=== PATIENT | male | born 1950 | race Caucasian/White ===

== ENCOUNTER 2018-01-17 12:11 | Emergency (ER) | payer MEDICARE, OTHER ==
[2018-01-17] MEDS ORDERED: Aspirin 81 MG Tab.Chew PO ONE (12:31)
[2018-01-17] MEDS ORDERED: Nitroglycerin 0.4 MG Tab.SL SL ONE ×2 (12:32→12:55)
[2018-01-17] MEDS ORDERED: Sodium Chloride 0.9% 10 ML Syringe FLUSH PRN (12:32)
--- NOTE | 2018-01-17 12:40 | EDM.PDOC ---
ED HPI GENERAL MEDICAL PROBLEM - General Chief Complaint: Chest Pain Stated Complaint: CHEST PAIN Time Seen by Provider: 01/17/18 12:20 Source of Information: Reports: Patient, Family History Limitations: Reports: No Limitations - History of Present Illness INITIAL COMMENTS - FREE TEXT/NARRATIVE: Jonatan comes to [facility] ED with a 4 hr hx of precordial chest pain characterized as a deep pain, nonradiating, with some sweats. There is no palpitations, dizziness, nausea, or GI upset. He has a remote hx of AMI, takes ASA 325 qHS, but does not use TNG. Initial pain rated 5/10, currently 2/10. 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 Mid-Anterior Chest Pain Score (Numeric/FACES): 2 - Related Data Allergies Allergy/AdvReac Type Severity Reaction Status Date / Time nicotine Allergy Rash Verified 06/03/16 10:53 Home Meds: Home Meds Acetaminophen/HYDROcodone [[place] 325-5 MG] 2 tab PO BID 06/03/16 [History] Aspirin 325 mg PO DAILY 06/03/16 [History] Calcium Carbonate [Calcium] 500 mg PO DAILY 06/03/16 [History] Cholecalciferol (Vitamin D3) [Vitamin D3] 5,000 unit PO DAILY 06/03/16 [History] Finasteride 5 mg PO DAILY 06/03/16 [History] Furosemide 20 mg PO BID 06/03/16 [History] Isosorbide Mononitrate [Imdur] 30 mg PO DAILY #30 tab.er 06/03/16 [Rx] Leflunomide 20 mg PO DAILY 06/03/16 [History] Lisinopril 2.5 mg PO BID 06/03/16 [History] Nitroglycerin [Nitrostat] 0.4 mg SL ASDIRECTED #1 bottle 06/03/16 [Rx] [place]-3 Fatty Acids [Fish Oil] 300 mg PO BID 06/03/16 [History] Tamsulosin [Tamsulosin 24 Hr] 0.4 mg PO BEDTIME 06/03/16 [History] Vitamin E 1,000 unit PO DAILY 06/03/16 [History] predniSONE [Prednisone] 5 mg PO DAILY 06/03/16 [History] Past Medical History Cardiovascular History: Reports: CAD, Hypertension, [place], Other (See Below) Other Cardiovascular History: TNK Genitourinary History: Reports: Prostate Disorder Musculoskeletal History: Reports: Arthritis - Past Surgical History Cardiovascular Surgical History: Reports: Other (See Below) Musculoskeletal Surgical History: Reports: Hip Replacement, Knee Replacement, Other (See Below) Social & Family History - Caffeine Use Caffeine Use: Reports: Coffee ED ROS GENERAL - Review of Systems Review Of Systems: See Below Constitutional: Reports: Malaise HEENT: Reports: No Symptoms Respiratory: Reports: No Symptoms Cardiovascular: Reports: Chest Pain Endocrine: Reports: No Symptoms GI/Abdominal: Reports: No Symptoms : Reports: No Symptoms Musculoskeletal: Reports: No Symptoms Skin: Reports: No Symptoms Neurological: Reports: No Symptoms Psychiatric: Reports: No Symptoms Hematologic/Lymphatic: Reports: No Symptoms Immunologic: Reports: No Symptoms ED EXAM, GENERAL - Physical Exam Exam: See Below Exam Limited By: No Limitations General Appearance: Alert, WD/WN, No Apparent Distress, Anxious Eye Exam: Bilateral Eye: EOMI, Normal Inspection, PERRL Ears: Normal External Exam Nose: Normal Inspection Throat/Mouth: Normal Inspection, Normal Oropharynx Head: Normocephalic Neck: Normal Inspection, Supple, Non-Tender, Full Range of Motion Respiratory/Chest: No Respiratory Distress, Lungs Clear, Normal Breath Sounds, No Accessory Muscle Use, Chest Non-Tender Cardiovascular: Normal Peripheral Pulses, Regular Rate, Rhythm, No Edema, No Gallop, No JVD, No Murmur, No Rub GI/Abdominal: Normal Bowel Sounds, Soft, Non-Tender, No Organomegaly, No Distention, No Mass (Male) Exam: Deferred Rectal (Males) Exam: Deferred Back Exam: Normal Inspection Extremities: Normal Inspection Neurological: Alert, Oriented, CN II-XII Intact, Normal Cognition, Normal Gait, No Motor/Sensory Deficits Psychiatric: Normal Affect, Anxious Skin Exam: Warm, Dry, Intact, Normal Color, No Rash Lymphatic: No Adenopathy Course - Vital Signs Text/Narrative:: Following assessment at the [facility] ED, a 12 lead ekg noted old INF [place], He was administered ASA 325 mg and NTG .4 mg SL pending results of screening labwork and chest x ray: heart size unchanged, no infiltrates; screening labs including Troponin I <0.017 are all baseline. His last adenosine sestamibi was about 2 years ago. I suggested follow up with PCP and revisit cardiac status. Last Recorded V/S: Last Vital Signs Temp Pulse 78 01/17/18 13:15 Resp 19 01/17/18 13:15 BP 113/74 01/17/18 13:15 Pulse Ox 93 L 01/17/18 13:15 - Orders/Labs/Meds Orders: Active Orders 24 hr Category Date Time Status Chest 1V Frontal [CR] Stat Exams 01/17/18 12:32 Taken Sodium Chloride 0.9% [Saline Flush] Med 01/17/18 12:32 Active 10 ml FLUSH ASDIRECTED PRN Peripheral IV Insertion Adult [OM.PC] Routine Oth 01/17/18 12:32 Ordered EKG 12 Lead [EK] Routine Ther 01/17/18 12:32 Ordered Medication Orders Sodium Chloride (Saline Flush) 10 ml FLUSH ASDIRECTED PRN PRN Reason: Keep Vein Open Last Admin: 01/17/18 12:41 Dose: 10 ml Labs: Laboratory Tests 01/17/18 01/17/18 01/17/18 Range/Units 12:45 12:45 12:45 WBC 9.8 (4.5-12.0) X10-3/uL RBC 4.43 (4.30-5.75) x10(6)uL Hgb 13.3 (11.5-15.5) g/dL Hct 39.9 (30.0-51.3) % MCV 90.1 (80-96) fL MCH 29.9 (27.7-33.6) pg MCHC 33.2 (32.2-35.4) g/dL RDW 14.2 (11.5-15.5) % Plt Count 267 (125-369) X10(3)uL MPV 8.6 (7.4-10.4) fL Neut % (Auto) 69.4 (46-82) % Lymph % (Auto) 19.2 (13-37) % [place] % (Auto) 7.1 (4-12) % Eos % (Auto) 4 (1.0-5.0) % Baso % (Auto) 1 (0-2) % Neut # (Auto) 6.7 (1.6-8.3) # Lymph # (Auto) 1.9 (0.6-5.0) # [place] # (Auto) 0.7 (0.0-1.3) # Eos # (Auto) 0.4 (0.0-0.8) # Baso # (Auto) 0.1 (0.0-0.2) # Sodium 140 (135-145) mmol/L Potassium 3.5 (3.5-5.3) mmol/L Chloride 102 (100-110) mmol/L Carbon Dioxide 31 (21-32) mmol/L BUN 21 H (7-18) mg/dL Creatinine 1.2 (0.70-1.30) mg/dL Est Cr Clr Drug Dosing TNP Estimated GFR (MDRD) > 60 (>60) BUN/Creatinine Ratio 17.5 (9-20) Glucose 111 (80-116) mg/dL Calcium 9.3 (8.6-10.2) mg/dL Total Bilirubin 0.5 (0.1-1.3) mg/dL AST 26 H (5-25) IU/L ALT 30 (12-36) U/L Alkaline Phosphatase 53 L (56-112) IU/L Troponin I < 0.017 L (<0.017-0.056) ng/mL Total Protein 7.1 (6.0-8.0) g/dL Albumin 3.5 (3.2-4.6) g/dL Globulin 3.6 g/dL Albumin/Globulin Ratio 1.0 Meds: Medications Generic Name Dose Route Start Last Admin Trade Name Freq PRN Reason Stop Dose Admin Sodium Chloride 10 ml 01/17/18 12:32 01/17/18 12:41 Saline Flush FLUSH 10 ml ASDIRECTED PRN Administration Keep Vein Open Discontinued Medications Generic Name Dose Route Start Last Admin Trade Name Freroshni PRN Reason Stop Dose Admin Aspirin 324 mg 01/17/18 12:31 01/17/18 12:36 Aspirin PO 01/17/18 12:32 324 mg ONETIME ONE Administration Nitroglycerin 0.4 mg 01/17/18 12:32 01/17/18 12:34 Nitrostat SL 01/17/18 12:33 0.4 mg ONETIME ONE Administration Nitroglycerin 0.4 mg 01/17/18 12:55 01/17/18 12:56 Nitrostat SL 01/17/18 12:56 0.4 mg ONETIME ONE Administration Departure - Departure Time of Disposition: 13:45 Disposition: Home, Self-Care 01 Condition: Fair Clinical Impression: Chest pain Qualifiers: Chest pain type: unspecified Qualified Code(s): R07.9 - Chest pain, unspecified Referrals: Hong Martinez MD [Primary Care Provider] - Forms: ED Department Discharge - Problem List & Annotations (1) Chest pain SNOMED Code(s): 90629412 Code(s): R07.9 - CHEST PAIN, UNSPECIFIED Status: Acute Current Visit: Yes Annotation/Comment:: I suggested follow up with PCP and revisit cardiac status with [facility] in [place], [place]. Qualifiers: Chest pain type: unspecified Qualified Code(s): R07.9 - Chest pain, unspecified - Problem List Review Problem List Initiated/Reviewed/Updated: Yes - My Orders Last 24 Hours: My Active Orders 01/17/18 12:32 Chest 1V Frontal [CR] Stat Sodium Chloride 0.9% [Saline Flush] 10 ml FLUSH ASDIRECTED PRN Peripheral IV Insertion Adult [OM.PC] Routine EKG 12 Lead [EK] Routine - Assessment/Plan Last 24 Hours: My Active Orders 01/17/18 12:32 Chest 1V Frontal [CR] Stat Sodium Chloride 0.9% [Saline Flush] 10 ml FLUSH ASDIRECTED PRN Peripheral IV Insertion Adult [OM.PC] Routine EKG 12 Lead [EK] Routine Plan: Follow up with PCP.
[2018-01-17 13:26] VITALS: BP 113/74
--- NOTE | 2018-01-17 14:44 | CR ---
INDICATION: Chest pain for 4 hours. CHEST: An AP view of the chest was obtained upright on 01/17/2018 and compared with 06/03/2016 and 12/09/2011. The heart remains normal in size and shape. The aorta is tortuous and slightly more calcified in the arch area. Overlying EKG leads are noted. An active infiltrate or effusion was not identified. IMPRESSION: Stable chest, no acute process. MTDD
== END 2018-01-17 14:00 | disposition home or self-care (01) ==
LOC: FB.ED 12:11
DX: R07.2 Precordial pain (principal); I25.10 Atherosclerotic heart disease of native coronary artery without angina pectoris; I10 Essential (primary) hypertension; I25.2 Old myocardial infarction; Z91.048 Other nonmedicinal substance allergy status; Z79.82 Long term (current) use of aspirin; Z79.899 Other long term (current) drug therapy
CPT/HCPCS: 36415; 71045; 80053; 84484; 85025; 93005; 99285; A9270; J7050

== ENCOUNTER 2018-10-14 14:12 | Emergency (ER) | payer MEDICARE, OTHER ==
[2018-10-14] MEDS: Ketorolac 30 MG/ML SDV IM STA (15:26)
[2018-10-14 15:30] VITALS: BP 145/81
--- NOTE | 2018-10-14 15:51 | EDM.PDOC ---
ED HPI GENERAL MEDICAL PROBLEM - General Chief Complaint: Lower Extremity Injury/Pain Stated Complaint: LOWER BACK PAIN THRU LOWER EXTREMITIES Time Seen by Provider: 10/14/18 14:21 Source of Information: Reports: Patient, Family History Limitations: Reports: No Limitations - History of Present Illness INITIAL COMMENTS - FREE TEXT/NARRATIVE: 67 y.o.w.m with a H/O CAD S/P right hip replacement came to ed because of pain at his left trochanter at rest, worse with movement. No trauma, no H/O gout. No N/V/D, no C/P no Dizziness, no other acute med. issues. BP 141/89 RR 19 Pulse ox 99% on RA Temp 36.6 Pulse 70. 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 Pain Score (Numeric/FACES): 8 - Related Data Allergies Allergy/AdvReac Type Severity Reaction Status Date / Time nicotine Allergy Rash Verified 10/14/18 15:33 Home Meds: Home Meds Acetaminophen/HYDROcodone [[place] 325-5 MG] 2 tab PO Q6H PRN 06/03/16 [History] Aspirin 325 mg PO DAILY 06/03/16 [History] Cholecalciferol (Vitamin D3) [Vitamin D3] 5,000 unit PO BID 06/03/16 [History] Finasteride 5 mg PO DAILY 06/03/16 [History] Furosemide 20 mg PO BID 06/03/16 [History] Leflunomide 20 mg PO DAILY 06/03/16 [History] Tamsulosin [Tamsulosin 24 Hr] 0.4 mg PO BEDTIME 06/03/16 [History] predniSONE [Prednisone] 3 mg PO DAILY PRN 06/03/16 [History] Ascorbic Acid [Vitamin C] 1,000 mg PO BID 01/17/18 [History] Aspirin [Ecotrin] 325 mg PO DAILY 01/17/18 [History] Metoprolol Tartrate 12.5 mg PO BID 01/17/18 [History] Multivit-Min/FA/Lycopene/Lut [Centrum Silver Tablet] 1 each PO BEDTIME 01/17/18 [History] Nitroglycerin [Nitrostat] 0.4 mg SL ASDIRECTED PRN 01/17/18 [History] [place]-3/DHA/Epa/Fish Oil [[place]-3 Fish Oil 1,000 MG Sfgl] 1,000 mg PO BID [History] atorvaSTATin [Lipitor] 40 mg PO BEDTIME 01/17/18 [History] predniSONE [Prednisone] 5 mg PO DAILY 01/17/18 [History] Colchicine 0.6 mg PO BID PRN #4 tablet 10/14/18 [Rx] Past Medical History Cardiovascular History: Reports: CAD, Hypertension, [place], Other (See Below) Other Cardiovascular History: TNK Genitourinary History: Reports: Prostate Disorder Musculoskeletal History: Reports: Arthritis - Past Surgical History Cardiovascular Surgical History: Reports: Other (See Below) Musculoskeletal Surgical History: Reports: Hip Replacement, Knee Replacement, Other (See Below) Social & Family History - Family History Family Medical History: Noncontributory - Caffeine Use Caffeine Use: Reports: Coffee Review of Systems - Review of Systems Review Of Systems: See Below Constitutional: Reports: No Symptoms Eyes: Reports: No Symptoms Ears: Reports: No Symptoms Nose: Reports: No Symptoms, Previous Injury Mouth/Throat: Reports: No Symptoms Respiratory: Reports: No Symptoms Cardiovascular: Reports: No Symptoms GI/Abdominal: Reports: No Symptoms Genitourinary: Reports: No Symptoms Musculoskeletal: Reports: Other (left hip pain) Skin: Reports: No Symptoms Neurological: Reports: No Symptoms Psychiatric: Reports: No Symptoms ED EXAM, GENERAL - Physical Exam Exam: See Below Exam Limited By: No Limitations General Appearance: Alert, WD/WN, Mild Distress, Moderate Distress Eye Exam: Bilateral Eye: Normal Inspection Ears: Normal External Exam Ear Exam: Bilateral Ear: Auricle Normal Nose: Normal Inspection, Normal Mucosa, No Blood Throat/Mouth: Normal Lips, Normal Voice, No Airway Compromise Head: Atraumatic, Normocephalic Neck: Normal Inspection, Supple, Non-Tender, Full Range of Motion Respiratory/Chest: No Respiratory Distress, Lungs Clear, Normal Breath Sounds, No Accessory Muscle Use, Chest Non-Tender Cardiovascular: Normal Peripheral Pulses, Regular Rate, Rhythm, No Edema Peripheral Pulses: 2+: Brachial (R) GI/Abdominal: Normal Bowel Sounds, Soft, Non-Tender, No Organomegaly, No Mass (Male) Exam: No Hernia Rectal (Males) Exam: Deferred Back Exam: Normal Inspection Extremities: Normal Inspection, Limited Range of Motion, Other (tender left trochanter) Neurological: Alert, Oriented, CN II-XII Intact, Normal Cognition Psychiatric: Normal Affect, Normal Mood Skin Exam: Warm, Dry, Intact, Normal Color, No Rash Lymphatic: No Adenopathy Course - Vital Signs Text/Narrative:: 67 y.o.w.m with a H/O CAD S/P right hip replacement came to ed because of pain at his left trochanter at rest, worse with movement. No trauma, no H/O gout. No N/V/D, no C/P no Dizziness, no other acute med. issues. BP 141/89 RR 19 Pulse ox 99% on RA Temp 36.6 Pulse 70. PE: WNWD W Male with pain at his left external Trochanter. Imaging: Not indicated Impression: Trochanter bursitis vs Gout Tx: Toradol, Colchicine Reexam: 80% improved, no pain at rest Plan: D/C with instructions Last Recorded V/S: Last Vital Signs Temp 36.6 C 10/14/18 14:21 Pulse 70 10/14/18 14:21 Resp 18 10/14/18 14:21 BP 145/81 H 10/14/18 14:21 Pulse Ox 99 10/14/18 14:21 - Orders/Labs/Meds Orders: Active Orders 24 hr Category Date Time Status Cooling Warming Measures [RC] ASDIRECTED Care 10/14/18 14:27 Active Ice Bag [Ice Therapy] [OM.PC] Routine Oth 10/14/18 14:27 Ordered Meds: Medications Discontinued Medications Generic Name Dose Route Start Last Admin Trade Name Freq PRN Reason Stop Dose Admin Colchicine 0.6 mg 10/14/18 15:49 10/14/18 15:54 Colcrys PO 10/14/18 15:50 0.6 mg ONETIME ONE Administration Ketorolac Tromethamine 30 mg 10/14/18 14:27 10/14/18 15:26 Toradol IM 10/14/18 14:28 30 mg ONETIME STA Administration Departure - Departure Time of Disposition: 15:53 Disposition: Home, Self-Care 01 Condition: Good Clinical Impression: Trochanteric bursitis of left hip, Gout - Discharge Information Prescriptions: Colchicine 0.6 mg PO BID PRN #4 tablet PRN Reason: pain left hip Instructions: Bursitis, Gout Referrals: Bobo Guo MD [Primary Care Provider] - Forms: ED Department Discharge Additional Instructions: Please cont your current meds, take Colchicine with food as needed for left hip pain/gout, please f/u, come back if your symptoms get worse acutely - My Orders Last 24 Hours: My Active Orders 10/14/18 14:27 Cooling Warming Measures [RC] ASDIRECTED Ice Bag [Ice Therapy] [OM.PC] Routine - Assessment/Plan Last 24 Hours: My Active Orders 10/14/18 14:27 Cooling Warming Measures [RC] ASDIRECTED Ice Bag [Ice Therapy] [OM.PC] Routine
[2018-10-14] MEDS: Colchicine 0.6 MG Tab PO ONE (15:54)
== END 2018-10-14 16:06 | disposition home or self-care (01) ==
LOC: FB.ED 14:12
DX: M10.052 Idiopathic gout, left hip (principal); I25.10 Atherosclerotic heart disease of native coronary artery without angina pectoris; I10 Essential (primary) hypertension; I25.2 Old myocardial infarction; Z88.8 Allergy status to other drugs, medicaments and biological substances; Z79.82 Long term (current) use of aspirin; Z79.899 Other long term (current) drug therapy; Z96.641 Presence of right artificial hip joint
CPT/HCPCS: 96372; 99283; A9270; J1885

== ENCOUNTER 2024-03-12 02:26 | Emergency (ER) | payer MEDICARE, OTHER ==
[2024-03-12] MEDS: methylPREDNISolone Sodium Succinate 125 MG/2 ML SDV IM ONE (02:43)
[2024-03-12] MEDS: Albuterol/Ipratropium 3.0-0.5 MG/3 ML Neb Soln NEB ONE (02:43)
[2024-03-12 03:17] LABS: BASOPHILS ABSOLUTE AUTO 0.1 x10-3/uL (0.0-0.3); BASOPHILS PERCENT AUTO 0.7 % (0.3-3.8); EOSINOPHILS ABSOLUTE AUTO 0.4 x10-3/uL (0.0-0.6); EOSINOPHILS PERCENT AUTO 4.4 % (0.1-6.8); HEMATOCRIT 37.3 % (38.3-50.1); HEMOGLOBIN 12.5 g/dL (12.9-17.7); LYMPHOCYTES ABSOLUTE AUTO 2.1 x10-3/uL (0.5-4.5); LYMPHOCYTES PERCENT AUTO 20.8 % (15.8-45.3); MEAN CORPUSCULAR HEMOGLOBIN 31.1 pg (27.0-33.3); MEAN CORPUSCULAR HGB CONC 33.4 g/dL (28.7-35.3); MEAN CORPUSCULAR VOLUME 92.9 fL (80.8-98.7); MEAN PLATELET VOLUME 8.3 fL (6.7-11.0); MONOCYTES ABSOLUTE AUTO 1.3 x10-3/uL (0.0-1.2); MONOCYTES PERCENT AUTO 12.6 % (5.5-15.2); NEUTROPHILS ABSOLUTE AUTO 6.3 x10-3/uL (1.7-6.9); NEUTROPHILS PERCENT AUTO 61.5 % (40.3-71.8); PLATELET COUNT,PLT 208 x10(3)uL (117-477); RED BLOOD CELL COUNT 4.01 x10(6)uL (3.90-5.90); RED CELL DISTRIBUTION WIDTH 14.2 % (12.4-15.0); WHITE BLOOD CELL COUNT,WBC 10.2 x10-3/uL (3.2-10.1)
[2024-03-12 03:23] LABS: BLOOD UREA NITROGEN,BUN 21 mg/dL (7-18); BUN/CREATININE RATIO 17.5 (9-20); CARBON DIOXIDE,CO2 33 mmol/L (21-32); CHLORIDE,CL 103 mmol/L (100-110); CREATININE 1.2 mg/dL (0.70-1.30); ESTIMATED GFR 63 mL/min (>60); GLUCOSE RANDOM 106 mg/dL (80-116); POTASSIUM,K 3.5 mmol/L (3.5-5.3); SODIUM,NA 141 mmol/L (135-145)
[2024-03-12 03:34] LABS: A/G RATIO 0.8; ALANINE AMINOTRANSFERASE,ALT 26 U/L (12-36); ALBUMIN 3.1 g/dL (3.2-4.6); ALKALINE PHOSPHATASE 46 IU/L (56-112); ASPARTATE AMNIOTRANSFERASE,AST 25 IU/L (5-25); BILIRUBIN TOTAL 0.5 mg/dL (0.1-1.3)
[2024-03-12 03:44] VITALS: BP 134/76; PULSE 84
== END 2024-03-12 03:45 | disposition home or self-care (01) ==
LOC: FB.ED 02:26
DX: J44.1 Chronic obstructive pulmonary disease with (acute) exacerbation (principal); I10 Essential (primary) hypertension; I25.10 Atherosclerotic heart disease of native coronary artery without angina pectoris; F17.210 Nicotine dependence, cigarettes, uncomplicated; Z79.899 Other long term (current) drug therapy; Z79.82 Long term (current) use of aspirin; Z88.5 Allergy status to narcotic agent
CPT/HCPCS: 36415; 71046; 80053; 85025; 86140; 94640; 96372; 99284; 99285; J2919; J7620

== ENCOUNTER 2024-12-25 12:17 | Emergency (ER) | payer MEDICARE ==
[2024-12-25 12:51] VITALS: BP 150/78; PULSE 95
[2024-12-25 12:57] LABS: BASOPHILS PERCENT AUTO 0.3 % (0.3-3.8); EOSINOPHILS ABSOLUTE AUTO 0.3 x10-3/uL (0.0-0.6); EOSINOPHILS PERCENT AUTO 3.1 % (0.1-6.8); HEMATOCRIT 35.3 % (38.3-50.1); HEMOGLOBIN 12.1 g/dL (12.9-17.7); LYMPHOCYTES ABSOLUTE AUTO 1.5 x10-3/uL (0.5-4.5); MEAN CORPUSCULAR HEMOGLOBIN 31.9 pg (27.0-33.3); MEAN CORPUSCULAR HGB CONC 34.2 g/dL (28.7-35.3); MEAN CORPUSCULAR VOLUME 93.4 fL (80.8-98.7); MEAN PLATELET VOLUME 8.4 fL (6.7-11.0); MONOCYTES ABSOLUTE AUTO 1.2 x10-3/uL (0.0-1.2); MONOCYTES PERCENT AUTO 12.1 % (5.5-15.2); NEUTROPHILS PERCENT AUTO 69.5 % (40.3-71.8); PLATELET COUNT,PLT 210 x10(3)uL (117-477); RED BLOOD CELL COUNT 3.78 x10(6)uL (3.90-5.90); RED CELL DISTRIBUTION WIDTH 14.9 % (12.4-15.0); WHITE BLOOD CELL COUNT,WBC 10.1 x10-3/uL (3.2-10.1)
[2024-12-25 13:08] LABS: BLOOD UREA NITROGEN,BUN 21 mg/dL (7-18); BUN/CREATININE RATIO 16.2 (9-20); CALCIUM 8.9 mg/dL (8.6-10.2); CARBON DIOXIDE,CO2 34 mmol/L (21-32); CHLORIDE,CL 101 mmol/L (100-110); CREATININE 1.3 mg/dL (0.70-1.30); ESTIMATED GFR 57 mL/min (>60); GLUCOSE RANDOM 159 mg/dL (80-116); POTASSIUM,K 3.5 mmol/L (3.5-5.3); SODIUM,NA 138 mmol/L (135-145)
[2024-12-25 13:11] LABS: BASE EXCESS VENOUS,POC 5 mmol/L (-2 - 3+); PCO2 VENOUS,POC 46 mmHg (41-51); PH VENOUS,POC 7.42 pH Units (7.32-7.43)
[2024-12-25 13:13] LABS: A/G RATIO 0.8; ALANINE AMINOTRANSFERASE,ALT 26 U/L (12-36); ALKALINE PHOSPHATASE 47 IU/L (56-112); ASPARTATE AMNIOTRANSFERASE,AST 22 IU/L (5-25); BILIRUBIN TOTAL 0.9 mg/dL (0.1-1.3); MAGNESIUM 1.7 mg/dL (1.8-2.5); PROTEIN TOTAL,TP 6.9 g/dL (6.0-8.0)
[2024-12-25 13:19] LABS: TROPONIN I 42.5 pg/mL (4.0-60.3)
[2024-12-25] MEDS: Sodium Chloride 0.9% 10 ML Syringe FLUSH PRN (14:17)
[2024-12-25] MEDS: methylPREDNISolone Sodium Succinate 40 MG/1 ML SDV IVPUSH ONE (14:17)
[2024-12-25] MEDS: Albuterol/Ipratropium 3.0-0.5 MG/3 ML Neb Soln NEB ONE (14:17)
[2024-12-25] MEDS: Iopamidol 755 Mg/ML 100 ML Bottle IV SCH (14:50)
[2024-12-25] MEDS ORDERED: Doxycycline 100 MG Tab PO ONE (15:37)
[2024-12-25] MEDS ORDERED: cefTRIAXone 2 GM Vial IVPUSH ONE (15:37)
== END 2024-12-25 16:40 | disposition home or self-care (01) ==
LOC: FB.ED 12:17
DX: R07.81 Pleurodynia (principal); D84.821 Immunodeficiency due to drugs; J18.9 Pneumonia, unspecified organism; I10 Essential (primary) hypertension; I25.10 Atherosclerotic heart disease of native coronary artery without angina pectoris; E78.00 Pure hypercholesterolemia, unspecified; M19.90 Unspecified osteoarthritis, unspecified site; Z88.8 Allergy status to other drugs, medicaments and biological substances; Z79.82 Long term (current) use of aspirin; Z79.899 Other long term (current) drug therapy; Z90.49 Acquired absence of other specified parts of digestive tract
CPT/HCPCS: 36415; 71045; 71275; 80053; 83735; 83880; 84484; 85025; 85379; 86140; 87426; 93005; 94640; 96374; 99285; A9270; J2919; Q9967

== ENCOUNTER 2025-05-14 09:28 | Emergency (ER) | payer MEDICARE ==
[2025-05-14 10:36] LABS: BASOPHILS ABSOLUTE AUTO 0.1 x10-3/uL (0.0-0.3); BASOPHILS PERCENT AUTO 0.6 % (0.3-3.8); EOSINOPHILS ABSOLUTE AUTO 0.2 x10-3/uL (0.0-0.6); EOSINOPHILS PERCENT AUTO 1.6 % (0.1-6.8); LYMPHOCYTES ABSOLUTE AUTO 1.5 x10-3/uL (0.5-4.5); LYMPHOCYTES PERCENT AUTO 11.1 % (15.8-45.3); MEAN PLATELET VOLUME 7.3 fL (6.7-11.0); MONOCYTES ABSOLUTE AUTO 0.9 x10-3/uL (0.0-1.2); MONOCYTES PERCENT AUTO 6.2 % (5.5-15.2); NEUTROPHILS ABSOLUTE AUTO 11.0 x10-3/uL (1.7-6.9); NEUTROPHILS PERCENT AUTO 80.5 % (40.3-71.8); PLATELET COUNT,PLT 256 x10(3)uL (117-477); RED BLOOD CELL COUNT 3.87 x10(6)uL (3.90-5.90); RED CELL DISTRIBUTION WIDTH 13.8 % (12.4-15.0); WHITE BLOOD CELL COUNT,WBC 13.7 x10-3/uL (3.2-10.1)
[2025-05-14 10:40] LABS: BLOOD UREA NITROGEN,BUN 25 mg/dL (7-18); CARBON DIOXIDE,CO2 34 mmol/L (21-32); CHLORIDE,CL 99 mmol/L (100-110); CREATININE 1.2 mg/dL (0.70-1.30); EST CRCL DRUG DOSING (CG) 47.26 mL/min; ESTIMATED GFR 63 mL/min (>60); GLUCOSE RANDOM 182 mg/dL (80-116); POTASSIUM,K 3.6 mmol/L (3.5-5.3); SODIUM,NA 139 mmol/L (135-145)
[2025-05-14 10:46] LABS: A/G RATIO 0.5; ALANINE AMINOTRANSFERASE,ALT 31 U/L (12-36); ASPARTATE AMNIOTRANSFERASE,AST 23 IU/L (5-25); BILIRUBIN TOTAL 0.7 mg/dL (0.1-1.3); PROTEIN TOTAL,TP 6.7 g/dL (6.0-8.0)
[2025-05-14] MEDS ORDERED: Sodium Chloride 0.9% 10 ML Syringe FLUSH PRN (11:16)
[2025-05-14] MEDS: methylPREDNISolone Sodium Succinate 125 MG/2 ML SDV IVPUSH ONE (11:28)
[2025-05-14 13:27] VITALS: BP 103/55; PULSE 71
== END 2025-05-14 13:12 ==
LOC: FB.ED 09:28
DX: J44.1 Chronic obstructive pulmonary disease with (acute) exacerbation (principal); J43.9 Emphysema, unspecified; I25.10 Atherosclerotic heart disease of native coronary artery without angina pectoris; I25.2 Old myocardial infarction; E78.00 Pure hypercholesterolemia, unspecified; R79.89 Other specified abnormal findings of blood chemistry; I11.0 Hypertensive heart disease with heart failure; I50.40 Unspecified combined systolic (congestive) and diastolic (congestive) heart failure; Z79.899 Other long term (current) drug therapy; Z79.52 Long term (current) use of systemic steroids; Z79.82 Long term (current) use of aspirin; Z90.49 Acquired absence of other specified parts of digestive tract; Z88.8 Allergy status to other drugs, medicaments and biological substances
CPT/HCPCS: 36415; 71046; 80053; 85025; 86140; 87428; 94640; 96361; 96365; 96375; 99285; A9270; J0456; J2919; J7030; J7050